=== PATIENT | female | born 1940 | race American Indian/Alaskan Native ===

== ENCOUNTER 2018-04-05 14:39 | Outpatient (CLI) | payer MEDICARE | END 2018-04-05 14:40 | disposition home or self-care (01) | LOC: RAD 14:40 ==

== ENCOUNTER 2018-07-05 09:35 | Outpatient (CLI) | payer MEDICARE | END 2018-07-05 09:36 | disposition home or self-care (01) | LOC: RAD 09:35 | DX: K76.9 Liver disease, unspecified (principal) ==